=== PATIENT | male | born 1985 | race Two or more races ===

== ENCOUNTER 2016-05-02 11:48 | Emergency (ER) | payer OTHER ==
[~2016-05-02] VITALS: Ht 185.4 cm; Wt 115.7 kg
[2016-05-02 12:07] VITALS: BP 124/53
[2016-05-02] MEDS ORDERED: KETOROLAC TROMETH 60MG/2ML VIAL IM ONE (13:00)
[2016-05-02] MEDS ORDERED: BACITRACIN TOP OINT 1 UD PKG TOP ONE (13:30)
[2016-05-02] MEDS ORDERED: LIDOCAINE 1% HCL (LOCAL ANESTH.) INJ 20ML MDV IJ ONE (13:30)
== END 2016-05-02 13:51 | disposition home or self-care (01) ==
LOC: ER 11:48 → EDBD 11:48 → ER 13:51
DX: S61.012A Laceration without foreign body of left thumb without damage to nail, initial encounter (principal); I48.91 Unspecified atrial fibrillation; W45.8XXA Other foreign body or object entering through skin, initial encounter; Y93.89 Activity, other specified; Y99.8 Other external cause status; Y92.89 Other specified places as the place of occurrence of the external cause
CPT/HCPCS: 12004; 96372; 99283; J1885; J2001

== ENCOUNTER → 2019-05-30 | Emergency (ER) | payer SELFPAY ==
[~2019-05-30] VITALS: Ht 185.4 cm; Wt 122.5 kg
[~2019-05-30] MED LIST: LIDOCAINE 1% HCL (LOCAL ANESTH.) INJ 20ML MDV IJ ONE; cefTRIAXone SOD 1,000 MG VL IM ONE
[2019-05-30 17:25] VITALS: BP 144/88
== END | disposition home or self-care (01) ==
LOC: ER 17:15
DX: L02.01 Cutaneous abscess of face (principal); I48.91 Unspecified atrial fibrillation; R51 Headache
CPT/HCPCS: 70450; 96372; 99284; C1887; J0696; J2001

== ENCOUNTER 2019-07-24 12:47 | Emergency (ER) | payer OTHER ==
[~2019-07-24] VITALS: Ht 185.4 cm; Wt 104.3 kg
[2019-07-24 13:12] VITALS: BP 151/98
== END 2019-07-24 14:09 | disposition home or self-care (01) ==
LOC: ER 12:47
DX: Z48.00 Encounter for change or removal of nonsurgical wound dressing (principal)